=== PATIENT | male | born 2000 | race Two or more races ===

== ENCOUNTER 2022-11-16 15:48 | Emergency (ER) | payer OTHER ==
[2022-11-16] MEDS ORDERED: AMOX/CLAV 875 MG/125 MG TABLET PO STA (16:44)
--- NOTE | 2022-11-16 16:48 | ED Physician Documentation ---
PD HPI UPPER EXT INJURY - Stated complaint Stated Complaint: CAT BITE - Chief complaint Chief Complaint: Wound - History obtained from History obtained from: Patient - Additonal information Additional information: Patient is a 22-year-old male with no significant prior medical history presenting for evaluation of cat bite to the left wrist. Patient states he was trying to get his cat inside after fighting with the neighbors dog. He got the cat away from the other dog but the dog came back which startled the cat and it bit him. The immunizations of the animal are up-to-date including rabies. Pa shanelle's tetanus is up-to-date. Review of Systems Constitutional: denies: Fever Cardiac: denies: Chest pain / pressure Respiratory: denies: Dyspnea GI: denies: Abdominal Pain Skin: reports: Laceration (s) PD PAST MEDICAL HISTORY - Past Medical History Past Medical History: No - Past Surgical History Past Surgical History: No - Present Medications Home Medications: Ambulatory Orders Medication Instructions Recorded Confirmed Amox/Clav 875/125 [Augmentin] 1 each PO Q12H #14 tablet 11/16/22 - Allergies Allergies/Adverse Reactions: Allergies Allergy/AdvReac Type Severity Reaction Status Date / Time No Known Drug Allergies Allergy Verified 11/16/22 15:55 - Social History Does the pt smoke?: No Smoking Status: Never smoker PD ED PE NORMAL - General General: Alert and oriented X 3, No acute distress, Well developed/nourished - HEENT HEENT: Atraumatic - Cardiac Cardiac: Strong equal pulses - Respiratory Respiratory: No respiratory distress - Extremities Extremities: Other (Puncture wounds to left wrist, No erythema, no swelling, no fluctuance; No lymphangitic streaking) Results - Vitals Vitals: Vital Signs - 24 hr 11/16/22 11/16/22 15:54 16:59 Temperature 36.8 C Heart Rate 104 H 90 Respiratory 20 16 Rate Blood Pressure 122/83 H 128/82 H O2 Saturation 99 98 Oxygen O2 Source Room air PD Medical Decision Making - ED course ED course: Patient is a 22-year-old male presenting for evaluation of cat bites to the left wrist. No signs of active infection. His tetanus is up-to-date. Animals vaccination status is also up-to-date. Discussed recommendations for prophylactic antibiotics which she is agreeable to. Reviewed concerning symptoms to return for. Departure - Departure Disposition: 01 Home, Self Care Clinical Impression: Cat bite of left forearm Condition: Stable Instructions: ED Bite Cat Prescriptions: Amox/Clav 875/125 [Augmentin] 1 each PO Q12H #14 tablet Comments: You were evaluated after a cat bite to your left wrist. I am starting on an antibiotic to prevent any infection. I have sent this prescription to [facility] in [place]. Please keep a close eye on the wound and keep it clean and dry. Return to the ER with any swelling, abnormal drainage, increased redness, fevers or any concerns. Forms: PCP List Discharge Date/Time: 11/16/22 16:59
[2022-11-16 17:02] VITALS: BP 128/82; O2SAT 98
== END 2022-11-16 16:59 | disposition home or self-care (01) ==
LOC: ED 15:48
DX: S51.852A Open bite of left forearm, initial encounter (principal); W55.01XA Bitten by cat, initial encounter
CPT/HCPCS: 99282; 99283; A9270

== ENCOUNTER 2023-06-06 14:14 | Outpatient (CLI) | payer OTHER ==
--- NOTE | 2023-06-06 17:03 | MRI Report ---
PROCEDURE: Lumbar Spine WO INDICATIONS: LOW BACK PAIN TECHNIQUE: Noncontrast sagittal T1 spin echo and T2 fast echo, sagittal STIR, axial T1 and T2 fast spin echo thr ough the lumbar spine. In cases with scoliosis, additional coronal T2 fast spin echo may be performe d. COMPARISON: None. FINDINGS: Image quality: Excellent. Alignment and Curvature: Straightening of normal lumbar lordosis. Bone Marrow: Marrow is of normal overall signal. No acute vertebral body compression fractures. Spinal Cord: Conus medullaris terminates at the L1 level. Visualized cord demonstrates normal signa l and size. Paraspinous Soft Tissues: No paravertebral masses. T12-L1: Normal in appearance. L1-L2: Normal in appearance. L2-L3: Normal in appearance. L3-L4: Normal in appearance. L4-L5: Disc desiccation and height loss. Small central disc protrusion.. No central canal or neurof oraminal stenosis. L5-S1: Disc desiccation and height loss. Mild posterior disc extrusion. No central canal stenosis. Moderate left neuroforaminal stenosis. No right neuroforaminal stenosis. IMPRESSION: Degenerative disc disease of the lower lumbar spine as described above. Reviewed by: Jonathan Ravi MD on 06/06/2023 5:02 PM PDT Approved by: Jonathan Ravi MD on 06/06/2023 5:02 PM PDT Station ID: [id number]
== END 2023-06-06 14:15 | disposition home or self-care (01) ==
LOC: DI 14:14
DX: M51.36 Other intervertebral disc degeneration, lumbar region (principal)